=== PATIENT | male | born 1950 | race Caucasian/White ===

== ENCOUNTER 2017-02-25 09:36 | Emergency (ER) | payer OTHER ==
--- NOTE | 2017-02-25 10:02 | UC ---
Lower Extremity/Ankle HPI - HPI Summary HPI Summary: 66 year old male presents with rash on lower right leg. - History of Current Complaint Chief Complaint: UCLowerExtremity Stated Complaint: RIGHT LEG COMPLAINT Time Seen by Provider: 02/25/17 10:02 Hx Obtained From: Patient Onset/Duration: Gradual Onset Severity Initially: Moderate Severity Currently: Moderate - Allergies/Home Medications Allergies/Adverse Reactions: Allergies Allergy/AdvReac Type Severity Reaction Status Date / Time No Known Allergies Allergy Verified 02/25/17 10:04 Home Medications: Home Medications Lisinopril/HCTZ (NF) [Zestoretic (NF)] 1 tab DAILY 02/25/17 [ History Confirmed 02/25/17] PMH/Surg Hx/FS Hx/Imm Hx Previously Healthy: Yes - Surgical History Surgical History: Yes Surgery Procedure, Year, and Place: LEFT 2ND TOE AMPUTATION - Family History Known Family History: Positive: None - Social History Alcohol Use: Daily Substance Use Type: None Smoking Status (MU): Former Smoker Review of Systems Constitutional: Negative Skin: Rash Eyes: Negative ENT: Negative Respiratory: Negative Cardiovascular: Negative Gastrointestinal: Negative Genitourinary: Negative Motor: Negative Neurovascular: Negative Musculoskeletal: Negative Neurological: Negative Psychological: Negative All Other Systems Reviewed And Are Negative: Yes Physical Exam Triage Information Reviewed: Yes Vital Signs Reviewed: Yes Eye Exam: Normal ENT Exam: Normal Dental Exam: Normal Neck exam: Normal Neck: Positive: 1 Respiratory Exam: Normal Cardiovascular Exam: Normal Abdominal Exam: Normal Musculoskeletal Exam: Normal Neurological Exam: Normal Psychological Exam: Normal Skin: Positive: rashes Lower Extremity Course/Dx - Differential Dx/Diagnosis Provider Diagnoses: eczema right calf Discharge - Discharge Plan Condition: Stable Disposition: HOME Prescriptions: Methylprednisolone [Medrol Dosepak 4 MG*] 4 mg PO .SEE [facility] [employer] #21 tab Triamcinolone 0.1% CREAM(NF) [Kenalog Cream 0.1%(NF)] 1 applic TOPICAL BID PRN # 90 gm PRN Reason: Rash Patient Education Materials: Acute Rash (ED) Referrals: Axel Boland MD [Primary Care Provider] - Naya Gonzalez [Medical Doctor] -
[2017-02-25 10:24] VITALS: BP 130/90
== END 2017-02-25 10:24 | disposition home or self-care (01) ==
LOC: UCCORT 09:36
DX: L30.9 Dermatitis, unspecified (principal); Z89.422 Acquired absence of other left toe(s); Z87.891 Personal history of nicotine dependence
CPT/HCPCS: 99212; G0463

== ENCOUNTER 2019-05-04 11:29 | Emergency (ER) | payer MEDICARE, OTHER ==
[2019-05-04 12:15] VITALS: BP 159/86
--- NOTE | 2019-05-04 12:18 | UC ---
Minor Trauma HPI - HPI Summary HPI Summary: 68 year old male presents with rib pain. patient states Tuesday evening while at a local pub he was on a barstool and had an episode of syncope. Patient states he was trying to hold and a sneeze but then ended up passing out. He rolled over to his right and landed on the ground. He did scrape his forehead as well as cause discomfort and pain into his right shoulder and right ribs. No additional episodes since that episode. No seizure-like activity. No active headache at this time. He states he is here because he is having some pain in the right ribs and he did fracture his ribs in the past so he feels he could've fractured them again today. He took Tylenol prior to arrival which has helped slightly. moving worsen symptoms. Rest slightly improved symptoms. He is not experiencing any chest pain or shortness of breath at this time. - History of Current Complaint Stated Complaint: RIGHT SIDE RIB PAIN/S/P FALL 04/30 Time Seen by Provider: 05/04/19 12:05 Hx Obtained From: Patient Associated Signs And Symptoms: Positive: Loss Of Consciousness, Ecchymosis Related History: Negative: Anticoagulants - Allergies/Home Medications Allergies/Adverse Reactions: Allergies Allergy/AdvReac Type Severity Reaction Status Date / Time No Known Allergies Allergy Verified 02/25/17 10:04 Home Medications: Home Medications Lovastatin 40 mg PO QPM 03/24/14 [History Confirmed 05/04/19] Nexium 1 tab PO DAILY 03/24/14 [History Confirmed 05/04/19] Acetaminophen [Tylenol Arthritis] 650 mg PO BID 05/04/19 [History Confirmed ] Equate Allergy 50 mg PO DAILY 05/04/19 [History Confirmed 05/04/19] Furosemide TAB* [Lasix TAB*] 40 mg PO DAILY 05/04/19 [History Confirmed 05/04/19 ] Losartan Potassium 100 mg PO DAILY 05/04/19 [History Confirmed 05/04/19] PMH/Surg Hx/FS Hx/Imm Hx Previously Healthy: Yes Endocrine History: Diabetes, Dyslipidemia Cardiovascular History: Hypertension - workdisease no however previously working hours works as GI/ History: Gastroesophageal Reflux - Surgical History Surgical History: Yes Surgery Procedure, Year, and Place: LEFT 2ND TOE AMPUTATION - Family History Known Family History: Positive: None - Social History Alcohol Use: Daily Substance Use Type: None Smoking Status (MU): Former Smoker - Immunization History Most Recent Influenza Vaccination: 2017 Review of Systems All Other Systems Reviewed And Are Negative: Yes Skin: Positive: Bruising Musculoskeletal: Positive: Arthralgia Physical Exam Triage Information Reviewed: Yes Appearance: No Pain Distress Vital Signs Reviewed: Yes Eye Exam: Normal ENT Exam: Normal ENT: Positive: Hearing grossly normal, Pharynx normal, TMs normal, Other - see skin. no matthew sign. Dental Exam: Normal Neck exam: Normal Neck: Positive: 1 Respiratory Exam: Normal Cardiovascular Exam: Normal Musculoskeletal Exam: Normal Musculoskeletal: Positive: Strength Intact, ROM Intact, Other: - right shoulder with ecchymosis on the anterior deltoid. Full range of motion. Strength 5 out of 5. Sensation intact. Right ribs diffusely tender lateral to the nipple. no break in skin nobruising also with 3x3 mm abrasion right forehead just prior to the the start of hairline with some surrounding erythema. Neurological Exam: Normal Psychological Exam: Normal Skin Exam: Normal Diagnostics - Radiology No standard instances Radiology Interpretation Completed By: Radiologist Summary of Radiographic Findings: neg - EKG Cardiac Rate: Tachycardia Minor Trauma Course/Dx - Differential Dx/Diagnosis Differential Diagnosis/HQI/PQRI: Contusion(s), Sprain, Strain Provider Diagnosis: Costochondritis, acute, Shoulder pain, right Discharge ED - Sign-Out/Discharge Documenting (check all that apply): Patient Departure All imaging exams completed and their final reports reviewed: Yes - Discharge Plan Condition: Good Disposition: HOME Patient Education Materials: Costochondritis (ED), Shoulder Pain (ED) Referrals: Joaquin Curran MD [Medical Doctor] - 1 Week (Ortho referral if needed ) Axel Boland MD [Primary Care Provider] - 3 Days - Billing Disposition and Condition Condition: GOOD Disposition: Home
[2019-05-04] MEDS ORDERED: Ibuprofen TAB* 600 MG PO ONE (12:43)
== END 2019-05-04 13:51 | disposition home or self-care (01) ==
LOC: UCCORT 11:29
DX: M94.0 Chondrocostal junction syndrome [Tietze] (principal); M25.511 Pain in right shoulder; E11.9 Type 2 diabetes mellitus without complications; E78.5 Hyperlipidemia, unspecified; I10 Essential (primary) hypertension; K21.9 Gastro-esophageal reflux disease without esophagitis; Z87.891 Personal history of nicotine dependence; Z79.899 Other long term (current) drug therapy
CPT/HCPCS: 99211; A9270-GY; G0463